=== PATIENT | female | born 2000 | race African-American/Black ===

== ENCOUNTER 2023-01-11 18:51 | Emergency (ER) | payer SELFPAY ==
[~2023-01-11 18:51] MED LIST: Iopamidol-370 76% 500 ML MDV (1 ML CHARGE) ONE
[2023-01-11] MEDS ORDERED: Ibuprofen 800 MG TAB ONE (19:41)
[2023-01-11 20:20] LABS: #Monocytes 1.3 thou/uL (0.11-0.59); #Neutrophils 10.5 thou/uL (1.40-6.50); %Basophils 0.2 % (0.0-1.0); %Eosinophils 0.1 % (0.0-10.0); %Lymphocytes 9.7 % (21.0-51.0); %Monocytes 9.9 % (0.0-10.0); %Neutrophils 79.6 % (42.0-75.0); Hematocrit 36.5 % (36.0-47.0); Hemoglobin 11.8 g/dL (12.0-16.0); Mean Corpuscular HGB CONC 32.3 g/dL (32.0-36.0); Mean Corpuscular Hemoglobin 24.8 pg (27.0-31.0); Mean Corpuscular Volume 76.7 fl (78.0-98.0); Mean Platelet Volume 9.8 fL (7.4-10.4); Platelet Count 291 10x3/uL (130-400); RBC Distribution Width 16.1 % (11.5-14.5); Red Blood Cell (RBC) Count 4.76 mill/uL (4.20-5.40); White Blood Cell (WBC) Count 13.1 10x3/uL (4.8-10.8)
[2023-01-11 20:24] LABS: BHCG - Serum Negative (NEGATIVE); Pregs Control Background? CLEAR/WHITE (CLR/WHITE); Pregs Control Bar Appear? YES (CONTROL BAR)
[2023-01-11] MEDS ORDERED: Ampicillin/Sulbactam 3 GM VIAL ONE (20:25)
[2023-01-11] MEDS ORDERED: Sodium Chloride 0.9% 100 ML ONE (20:26)
[2023-01-11 20:57] LABS: SARS-CoV-2 NAA Rapid Test Not Detected (NotDetected)
[2023-01-11 21:25] LABS: ALT (SGPT) 7 U/L (8-55); AST (SGOT) 10 U/L (5-34); Albumin 4.7 g/dL (3.5-5.0); Alkaline Phosphatase 111 U/L (40-110); Anion Gap 17 mmol/L (10-20); BUN (Urea Nitrogen) 7 mg/dL (7.0-18.7); Bilirubin, Total 0.5 mg/dL (0.2-1.2); Calc. Creatinine Clearance 0 mL/min (70-130); Carbon Dioxide 20 mmol/L (22-29); Chloride 102 mmol/L (98-107); Estimated GFR 111; Globulin 4.2 g/dL (2.4-3.5); Glucose 76 mg/dL (70-105); Potassium 3.4 mmol/L (3.5-5.1); Protein, Total 8.9 g/dL (6.0-8.3); Sodium 136 mmol/L (136-145)
[2023-01-11] MEDS ORDERED: Benzocaine 20% Spray 60 ML CAN ONE (23:43)
== END 2023-01-12 00:52 | disposition home or self-care (01) ==
LOC: ERS 18:51
DX: J36 Peritonsillar abscess (principal); Z20.822 Contact with and (suspected) exposure to COVID-19
CPT/HCPCS: 36415; 42700; 70492; 80053; 84703; 85025; 87070; 87077; 87081; 87205; 87430; 96361; 96365; J0295; J3490; Q9967